=== PATIENT | female | born 1985 | race Asian ===

== ENCOUNTER 2019-06-04 19:44 | Outpatient (CLI) | payer BC ==
[2019-06-04] MEDS ORDERED: MEDR150I3 IM (20:33)
== END 2019-06-04 19:58 | disposition short-term general hospital (02) ==
LOC: AMB 19:44
DX: M54.2 Cervicalgia (principal); M54.9 Dorsalgia, unspecified; M79.652 Pain in left thigh; V89.2XXA Person injured in unspecified motor-vehicle accident, traffic, initial encounter; Y92.413 State road as the place of occurrence of the external cause
CPT/HCPCS: A0425; A0427

== ENCOUNTER 2019-06-04 20:14 | Emergency (ER) | payer BC ==
[~2019-06-04] VITALS: Ht 162.6 cm; Wt 88.5 kg
[2019-06-04] MEDS ORDERED: MEDR150I3 IM (20:33)
[2019-06-04 22:00] VITALS: BP 123/69; TEMP 97.7
== END 2019-06-04 22:00 | disposition home or self-care (01) ==
LOC: ED 20:14
DX: S13.4XXA Sprain of ligaments of cervical spine, initial encounter (principal); S23.3XXA Sprain of ligaments of thoracic spine, initial encounter; S20.212A Contusion of left front wall of thorax, initial encounter; V63.5XXA Driver of heavy transport vehicle injured in collision with car, pick-up truck or van in traffic accident, initial encounter
CPT/HCPCS: 96374; 99283; 99284; J1885